=== PATIENT | male | born 1960 | race Caucasian/White ===

== ENCOUNTER 2016-11-09 15:38 | Inpatient (IN) | payer OTHER ==
[~2016-11-09] VITALS: Ht 175.3 cm; Wt 93.5 kg
--- NOTE | ~2016-11-09 | HP ---
ADMIT: 11/09/2016 RM/LOC: 431 [facility] MR#: [id number] [address] [address] NOHEMI PERERA [address] [place] [address] History and Physical SEX: M AGE: 56 : 1960 DATE OF SERVICE: CHIEF COMPLAINT: Right hand and leg weakness. HISTORY OF PRESENT ILLNESS: Mr. Perera is a 56-year-old man with history of coronary artery disease and peripheral vascular disease and prior CVA, who presented to the hospital with complaints of blurred vision in left eye, and right hand and leg weakness which started on Friday night. He did notice symptoms and later presented to ER today evening. He has history of prior CVA and also underwent a right carotid endarterectomy. He continues to smoke 1 pack of cigarettes everyday, and doubt if he is compliant with his diabetic medication. PAST MEDICAL HISTORY: 1. Hypertension, hyperlipidemia, diabetes mellitus, chronic tobacco use, coronary artery disease. 2. Last CVA in November of 2014. 3. Spinal stenosis, erectile dysfunction, chronic sinusitis, hearing loss, anxiety. 4. Seizure disorder. PAST SURGICAL HISTORY: 1. Back surgery. 2. Coronary artery bypass grafting. 3. Coronary stents. 4. Bilateral femoral-popliteal stents. ALLERGIES: NO KNOWN DRUG ALLERGIES. SOCIAL HISTORY: He lives at home with his . He smokes 1 pack of cigarettes everyday. Denies any alcohol or recreational drug use. FAMILY HISTORY: Significant for diabetes mellitus in his brother and heart disease in his mother. REVIEW OF SYSTEMS: A 10-point review of systems negative except as mentioned in HPI. CURRENT MEDICATIONS: 1. Lantus 62 units daily. 2. Keppra 500 mg once daily. 3. Gabapentin 600 mg three tablets b.i.d. 4. Metformin 1000 mg four tablets daily. 5. Plavix 75 mg once daily. 6. Metoprolol 100 mg daily. 7. Hydrocodone/acetaminophen 10/325 mg one tab every 6 hours as needed. PHYSICAL EXAMINATION: VITAL SIGNS: Current temperature 97.5, heart rate 84, respirations 16, blood pressure 146/96, 95% on room air. ADMIT: 11/09/2016 RM/LOC: 431 [facility] MR#: [id number] [address] NOHEMI PERERA [facility] [place] [address] History and Physical SEX: M AGE: 56 : 1960 GENERAL: In no acute distress. HEENT: Head; normocephalic and atraumatic. Extraocular movements intact. Oral mucosa moist. LYMPH: No palpable anterior/posterior cervical or supraclavicular lymphadenopathy. CHEST: Decreased breath sounds bilaterally. No wheezes, rales, or rhonchi. CARDIOVASCULAR: S1 and S2 heard. Regular rate and rhythm. ABDOMEN: Soft, nontender, nondistended. Active bowel sounds. EXTREMITIES: No peripheral edema. NEURO: Awake, alert, and oriented x3. Cranial nerves II through XII intact. Strength 5/5 in bilateral upper extremity and left lower extremity, strength 4/5 in right lower extremity. Sensation intact distally. PSYCH: Normal affect. Memory intact. DATA REVIEW: CBC showed white count of 5.7, hemoglobin 13.7, platelets of 204. BMP showed creatinine of 0.9. CT head showed subacute non-hemorrhagic infarct in left occipital lobe. Chest x-ray showed modest interval increase in size of the heart. ASSESSMENT AND PLAN: 1. Left occipital subacute infarct. He is out of the window for tPA. We will do neuro checks every 4 hours. We will check a transthoracic echocardiogram, TSH, RPR, fasting lipid panel, and hemoglobin A1c. Continue with aspirin and Plavix. Neurology consult. 2. Coronary artery disease, status post coronary artery bypass grafting and stents. Continue outpatient medications. 3. Peripheral vascular disease. 4. Chronic tobacco use. 5. Diabetes mellitus. Continue with Lantus, and we will switch his metformin to 1000 mg twice daily. 6. History of right carotid endarterectomy. 7. Seizure disorder. Continue Keppra. 8. Transfer to [place] when bed available. Jael Bolivar MD/ rinku JOB #: [id number] CC: Jael Bolivar, Attending Physician . [facility] Physician
[~2016-11-09 15:38] MED LIST: ASPIR-TRIN325 MG PO; ATORVASTATIN CA80 MG PO; CLOPIDOGREL75 MG PO; DESYREL-DPS50 MG PO; FORTAMET1000 MG PO; GABAPENTIN600 MG PO; HUMALOG100 UNIT/1 SQ; HYDROCODONE 10M10 MG PO; KEPPRA500 MG PO; LANTUS100 UNITS/ SQ; LISINOPRIL10 MG PO; METOPROLOL PO; ZOLOFT DPS100 MG PO
--- NOTE | 2016-11-16 08:15 | ER ---
ADMIT: 11/09/2016 RM/LOC: ER [facility] MR#: [id number] [address] NOHEMI SAWYER [address] [place] [address] Emergency Room Report SEX: M AGE: 56 : 1960 DATE: 11/09/2016 HISTORY OF PRESENT ILLNESS: A 56-year-old gentleman awoke with weakness in the right upper extremity. He has some blurry vision and numbness in the right side. He had a mild headache. He then apparently took a nap then came in at this time with complaints. Denies any chest pain or palpitations. No fever, chills, or rigors. No cough or shortness of breath. PAST MEDICAL HISTORY: Significant for CVA in the past, peripheral vascular disease, had iliac artery stented, diabetes, and hypertension. SOCIAL HISTORY: He continues to smoke. Does not drink alcohol. PHYSICAL EXAMINATION: GENERAL: A 56-year-old gentleman in no acute distress. HEENT: Normocephalic and atraumatic. His pupils are equal and reactive. LUNGS: Clear to auscultation. CARDIOVASCULAR: No murmurs, rubs, or gallops. ABDOMEN: Obese, soft, nontender. EXTREMITIES: Unremarkable. Stroke scale was a 2. CT scan revealed subacute infarct in the occipital area. His CBC and CMP are pending at time of this dictation. I went in to speak with the patient about the findings of the CT scan, and he then stated well his symptoms actually started Friday, but he did not bother to be seen until today. He is being admitted for subacute ischemic infarct, which is greater than 24 hours' duration. Konrad Brooks MD/ rinku JOB #: [id number] CC: Konrad Brooks MD, Attending Physician [facility] Physician, Family Physician
--- NOTE | 2016-11-22 12:33 | DS ---
ADMIT: 11/09/2016 RM/LOC: 431 [facility] MR#: [id number] [address] NOHEMI SAWYER [address] [place] [address] General Discharge Summary SEX: M AGE: 56 : 1960 ADMISSION DATE: 11/09/2016 DISCHARGE DATE: 11/10/2016 PRIMARY DISCHARGE DIAGNOSES: 1. Left occipital subacute infarct. 2. Coronary artery disease status post coronary artery bypass grafting and stents. SECONDARY DISCHARGE DIAGNOSES: 1. Peripheral vascular disease. 2. Chronic tobacco use. 3. Diabetes mellitus. 4. Seizure disorder. HOSPITAL COURSE: The patient was admitted for right hand and leg weakness and was noted to have left occipital subacute infarct. The patient left against medical advice. Jael Bolivar MD/ rinku JOB #: [id number] CC: Jael Bolivar MD, Attending Physician [facility] Physician, Family Physician
== END 2016-11-10 12:45 | disposition left against medical advice (07) | DRG 65 ==
LOC: ER 15:38 → 4PCU 17:24
PROVIDERS: ADMIT Internal Medicine Infectious Disease
DX: I63.9 Cerebral infarction, unspecified (principal); G81.91 Hemiplegia, unspecified affecting right dominant side; E11.65 Type 2 diabetes mellitus with hyperglycemia; I10 Essential (primary) hypertension; H53.8 Other visual disturbances; R20.0 Anesthesia of skin; I73.9 Peripheral vascular disease, unspecified; F17.210 Nicotine dependence, cigarettes, uncomplicated; I25.10 Atherosclerotic heart disease of native coronary artery without angina pectoris; E78.5 Hyperlipidemia, unspecified; M48.00 Spinal stenosis, site unspecified; J32.9 Chronic sinusitis, unspecified; H91.90 Unspecified hearing loss, unspecified ear; F41.9 Anxiety disorder, unspecified; G40.909 Epilepsy, unspecified, not intractable, without status epilepticus; Z95.1 Presence of aortocoronary bypass graft; Z95.820 Peripheral vascular angioplasty status with implants and grafts; Z86.73 Personal history of transient ischemic attack (TIA), and cerebral infarction without residual deficits; Z91.14 Patient's other noncompliance with medication regimen; Z95.5 Presence of coronary angioplasty implant and graft; Z79.4 Long term (current) use of insulin; Z79.02 Long term (current) use of antithrombotics/antiplatelets; Z79.84 Long term (current) use of oral hypoglycemic drugs